=== PATIENT | female | born 1945 | race Caucasian/White ===

== ENCOUNTER 2017-02-16 10:44 | Outpatient (CLI) | payer BC | END 2017-02-16 20:21 | disposition home or self-care (01) | LOC: SMA 10:44 | PROVIDERS: ATTEND Internal Medicine | DX: Z12.31 Encounter for screening mammogram for malignant neoplasm of breast (principal) | CPT/HCPCS: G0202 ==

== ENCOUNTER 2018-02-22 13:06 | Outpatient (CLI) | payer BC | END 2018-02-22 19:01 | disposition home or self-care (01) | LOC: SMA 13:06 | PROVIDERS: ATTEND Internal Medicine | DX: Z12.31 Encounter for screening mammogram for malignant neoplasm of breast (principal) | CPT/HCPCS: 77067 ==

== ENCOUNTER 2018-03-16 08:27 | Outpatient (CLI) | payer BC | END 2018-03-16 20:47 | disposition home or self-care (01) | LOC: SMA 08:27 | PROVIDERS: ATTEND Internal Medicine | DX: R92.8 Other abnormal and inconclusive findings on diagnostic imaging of breast (principal) | CPT/HCPCS: 76642; 77065 ==